=== PATIENT | female | born 1945 | race Caucasian/White ===

== ENCOUNTER 2022-11-13 08:55 | Inpatient (IN) | payer MEDICARE, BC ==
[~2022-11-13] VITALS: Ht 157.5 cm; Wt 66.7 kg
--- NOTE | 2022-11-13 09:04 | NUR ---
PT IS IN ROOM #2A. DR WOOTEN EVALUATED THE PT.
[2022-11-13 09:45] LABS: HEMATOCRIT 39.2 % (31.2-41.9); PLATELET COUNT (AUTO) 187 K/uL (179-408)
[2022-11-13] MEDS ORDERED: CLON0.1T PO (10:14)
[2022-11-13] MEDS ORDERED: CALC-1095 PO (10:14)
[2022-11-13] MEDS ORDERED: SPIR1TAB PO (10:14)
[2022-11-13] MEDS ORDERED: METO25TA3 PO (10:14)
[2022-11-13 10:53] LABS: CARBON DIOXIDE 28 mmol/L (21-32); CHLORIDE 101 mmol/L (98-107); CREATININE 0.8 mg/dL (0.6-1.3); GLUCOSE 140 mg/dL (74-106); POTASSIUM 3.8 mmol/L (3.5-5.1); UREA NITROGEN, BLOOD 16 mg/dL (7-18)
[2022-11-13] MEDS ORDERED: ACETAMINOPHEN 325 MG TABLET PO PRN (11:00)
[2022-11-13] MEDS ORDERED: ONDANSETRON 4 MG/2 ML VIAL IV PRN (11:00)
[2022-11-13] MEDS ORDERED: MORPHINE SULFATE 2 MG/1 ML DISP.SYRIN IV PRN (11:00)
[2022-11-13] MEDS ORDERED: REMEDY ESSENTIAL ZINC PASTE 113 GM TP PRN (11:00)
[2022-11-13] MEDS ORDERED: MAGNESIUM HYDROXIDE 30 ML LIQUID UDC PO PRN (11:00)
[2022-11-13] MEDS ORDERED: IV NS 1000 ML 1,000 ML IV PRN (11:00)
--- NOTE | 2022-11-13 11:17 | NUR ---
REPORT WAS GIVEN TO RN M/S. PT WAS TRANSFERED TO ROOM #317.
--- NOTE | 2022-11-13 11:30 | NUR ---
received from ER awake, alert and oriented, per juan luis with daughter and [employer], oriented to bed controls and call button, initial assessment done, made comfortable and explained plan of care, seen by hospitalist Mary Petty with orders, safety measures maintained, call light within reach
[2022-11-13 12:00] VITALS: BP 142/100
[2022-11-13] MEDS ORDERED: CARV25TA PO (13:01)
--- NOTE | 2022-11-13 13:15 | NUR ---
medicated for pain on left hip with Morphine 1mg as ordered prn, family at bedside
--- NOTE | 2022-11-13 13:45 | NUR ---
states pain lesser 3/10, resting with family at bedside- took lunch, informed of surgery at 0800 tomorrow and will be nothing per mouth at midnite-verbalized understanding
[2022-11-13] MEDS: IV 1/2NS 1000 ML 1,000 ML IV PRN (14:11)
--- NOTE | 2022-11-13 16:00 | NUR ---
resting, daughter and female visitor at bedside, no distress noted, voided per bedpan- quantity sufficient
[2022-11-13 16:18] VITALS: BP 117/55
--- NOTE | 2022-11-13 17:35 | NUR ---
iv site infiltrated, states "been poked several times and reluctant to have iv restarted- explained the need of IV for pain med and iv abx and will be npo after midnite for surgery in am- agreed to have midline inserted-snow removal supervisor notified for midline nurse
[2022-11-13] MEDS: CARVEDILOL 25 MG TABLET PO SCH (17:46)
[2022-11-13 20:00] VITALS: BP 121/64
[2022-11-13] MEDS: MORPHINE SULFATE 2 MG/1 ML DISP.SYRIN IV PRN (20:30)
[2022-11-13] MEDS ORDERED: CLONIDINE HCL 0.1 MG TABLET PO SCH (21:00)
[2022-11-13] MEDS ORDERED: CEFAZOLIN 1 G VIAL IM SCH (22:00)
[2022-11-13] MEDS: CEFAZOLIN 1 G in IV DEXTROSE 5% 50 ML IV SCH (22:03)
[2022-11-14 04:00] VITALS: BP 99/51
[2022-11-14] MEDS: MORPHINE SULFATE 2 MG/1 ML DISP.SYRIN IV PRN (04:22)
[2022-11-14] MEDS: IV 1/2NS 1000 ML 1,000 ML IV PRN (05:18)
[2022-11-14] MEDS: CEFAZOLIN 1 G in IV DEXTROSE 5% 50 ML IV SCH ×2 (05:37→16:28)
[2022-11-14] MEDS ORDERED: VANCOMYCIN 1000 MG VIAL ONE (06:37)
--- NOTE | 2022-11-14 06:58 | NUR ---
Slept intermittently, medicated for pain as ordered. No adverse reaction from IV antibiotic. NPO post midnight for schedule surgery in the morning. Needs assessed and attended to.
[2022-11-14 06:59] LABS: HEMATOCRIT 34.3 % (31.2-41.9); MEAN CORPUSCULAR HEMOGLOBIN 27.2 uug (24.7-32.8); MEAN CORPUSCULAR VOLUME 82.7 fL (75.5-95.3); PLATELET COUNT (AUTO) 172 K/uL (179-408)
[2022-11-14 07:04] LABS: CARBON DIOXIDE 30 mmol/L (21-32); CHLORIDE 102 mmol/L (98-107); CREATININE 0.8 mg/dL (0.6-1.3); GLUCOSE 144 mg/dL (74-106); MAGNESIUM 1.7 mg/dL (1.8-2.4); PHOSPHOROUS 3.8 mg/dL (2.5-4.9); POTASSIUM 4.1 mmol/L (3.5-5.1); UREA NITROGEN, BLOOD 17 mg/dL (7-18)
[2022-11-14] MEDS ORDERED: FENTANYL CITRATE 250 MCG/5 ML AMPUL ONE (07:18)
[2022-11-14] MEDS ORDERED: ROCURONIUM BROMIDE 50 MG/5 ML VIAL ONE (07:18)
[2022-11-14] MEDS ORDERED: MIDAZOLAM HCL 2 MG/2 ML VIAL ONE (07:18)
[2022-11-14] MEDS ORDERED: FAMOTIDINE. 20 MG/2 ML VIAL IV ONE (07:18)
--- NOTE | 2022-11-14 07:53 | NUR ---
Pt. left the unit for surgery.
[2022-11-14 08:15] LABS: *BILIRUBIN,URIN NEGATIVE (NEGATIVE); *CLARITY,URINE CLEAR (CLEAR); *COLOR,URINE YELLOW (YELLOW); *KETONES,URINE NEGATIVE (NEGATIVE); *UROBILINOGEN,URINE 0.2 E.U./dl (NORMAL); LEUKOCYTE ESTERASE ,URINE NEGATIVE (NEGATIVE); NITRITE, URINE NEGATIVE (NEGATIVE); PH,URINE 6.5 (5.0-8.0); UGLUCOSE NEGATIVE (NEGATIVE)
[2022-11-14 08:24] LABS: *BLOOD, URINE TRACE (NEGATIVE)
[2022-11-14 09:00] LABS: RBC,URINE 0-3 /HPF (0-3)
[2022-11-14] MEDS: CALCIUM CARBONATE 500 MG TABLET PO SCH (09:00)
[2022-11-14] MEDS: CARVEDILOL 25 MG TABLET PO SCH ×2 (09:00→16:42)
[2022-11-14] MEDS ORDERED: METOPROLOL SUCCINATE XL 25 MG TAB.SR.24H PO SCH (09:00)
[2022-11-14 09:01] LABS: BACTERIA,URINE NONE SEEN /HPF (NONE SEEN); CALCIUM CARBONATE CRYSTALS,UR NONE SEEN /HPF (NONE SEEN); CALCIUM OXALATE CRYSTALS,UR NONE SEEN /HPF (NONE SEEN); CALCIUM PHOSPHATE CRYSTALS,UR NONE SEEN /HPF (NONE SEEN); COARSE GRANULAR CASTS,URINE NONE SEEN /LPF; CYSTINE CRYSTALS,URINE NONE SEEN /HPF (NONE SEEN); FATTY CASTS,URINE NONE SEEN /LPF (NONE SEEN); MUCUS,URINE FEW /LPF (0-FEW); RED BLOOD CELL CASTS,URINE NONE SEEN /LPF (NONE SEEN); SPERM,URINE NONE SEEN /HPF (NONE SEEN); SQUAMOUS EPITHELIAL CELL,UR FEW /HPF (NONE SEEN); TRICHOMONAS,URINE NONE SEEN /HPF (NONE SEEN); TRIPLE PHOSPHATE CRYSTAL,UR NONE SEEN /HPF (NONE SEEN); TYROSINE CRYSTAL,URINE NONE SEEN /HPF (NONE SEEN); URIC ACID CRYSTALS,URINE NONE SEEN /HPF (NONE SEEN); URINE AMORPHOUS PHOSPHATES NONE SEEN /HPF; URINE AMORPHOUS URATE NONE SEEN /HPF; WAXY CASTS,URINE NONE SEEN /LPF (NONE SEEN); WBC,URINE NONE SEEN /HPF (0-3); YEAST,URINE NONE SEEN /HPF (NONE SEEN)
[2022-11-14] MEDS ORDERED: CEFAZOLIN 1 G VIAL ONE (10:14)
[2022-11-14] MEDS ORDERED: LIDOCAINE-MPF 2% 5 ML VIAL ONE (10:14)
[2022-11-14] MEDS ORDERED: NEOSTIGMINE METHYLSULFATE 10 MG/10 ML VIAL ONE (10:14)
[2022-11-14] MEDS ORDERED: PROPOFOL 200 MG/20 ML BOTTLE ONE (10:14)
[2022-11-14] MEDS ORDERED: GLYCOPYRROLATE 0.2 MG/ML VIAL ONE (10:14)
[2022-11-14] MEDS ORDERED: METOCLOPRAMIDE HCL 10 MG/2 ML VIAL ONE (10:14)
[2022-11-14] MEDS ORDERED: ONDANSETRON 4 MG/2 ML VIAL ONE (10:14)
--- NOTE | 2022-11-14 11:00 | NUR ---
Pt. came back from surgery. Noted to be stable. Notified pt.'s daughter Yulia when pt. came back to the unit. Received report from OR nurse Rupert Arroyo. Incision site is clean and will keep it clean and dry. No c/o pain. Call light within reach. Will keep monitoring the patient.
[2022-11-14] MEDS ORDERED: HYDROCODONE/APAP 10-325 MG TABLET PO PRN (11:45)
[2022-11-14 11:54] VITALS: BP 128/69
[2022-11-14] MEDS: IV D5W-0.45% NS +20 KCL 1,000 ML IV PRN (12:28)
[2022-11-14] MEDS ORDERED: CEFAZOLIN 1 G in IV DEXTROSE 5% 50 ML IV SCH (14:00)
[2022-11-14 15:47] VITALS: BP 134/57
[2022-11-14] MEDS ORDERED: MAGNESIUM OXIDE 400 MG TABLET PO ONE (17:00)
[2022-11-14] MEDS: RIVAROXABAN 10 MG TABLET PO SCH (17:11)
--- NOTE | 2022-11-14 17:42 | NUR ---
Pt. is alert and oriented x4. Has been stable during the shift. Surgical site clean. Able to make the need known. Kept the patient clean and dry. All schedule medications administered and no adverse reaction noted. Will keep monitoring the patient.
[2022-11-14] MEDS: MORPHINE SULFATE 4 MG/1 ML DISP.SYRIN IV PRN (17:46)
[2022-11-14 20:05] VITALS: BP 165/68
[2022-11-14] MEDS ORDERED: CLONIDINE HCL 0.1 MG TABLET PO PRN (21:00)
[2022-11-15] MEDS: CEFAZOLIN 1 G in IV DEXTROSE 5% 50 ML IV SCH (00:32)
[2022-11-15] MEDS: IV D5W-0.45% NS +20 KCL 1,000 ML IV PRN ×2 (02:26→15:57)
[2022-11-15 06:00] VITALS: BP 153/62
[2022-11-15 06:19] LABS: HEMATOCRIT 29.6 % (31.2-41.9); MEAN CORPUSCULAR HEMOGLOBIN 27.3 uug (24.7-32.8); MEAN CORPUSCULAR VOLUME 82.9 fL (75.5-95.3); PLATELET COUNT (AUTO) 164 K/uL (179-408)
[2022-11-15 06:58] LABS: CARBON DIOXIDE 28 mmol/L (21-32); CHLORIDE 101 mmol/L (98-107); CREATININE 0.8 mg/dL (0.6-1.3); GLUCOSE 140 mg/dL (74-106); MAGNESIUM 1.7 mg/dL (1.8-2.4); UREA NITROGEN, BLOOD 12 mg/dL (7-18)
--- NOTE | 2022-11-15 07:01 | NUR ---
Slept well, no complain of pain. Surgical site dressing dry and intact, no noted bleeding. No adverse reaction from IV antibiotic. Needs attended.
[2022-11-15] MEDS: CARVEDILOL 25 MG TABLET PO SCH ×2 (09:03→17:22)
[2022-11-15] MEDS: CALCIUM CARBONATE 500 MG TABLET PO SCH (09:04)
[2022-11-15] MEDS ORDERED: MAGNESIUM OXIDE 400 MG TABLET PO ONE (10:00)
[2022-11-15] MEDS: MORPHINE SULFATE 4 MG/1 ML DISP.SYRIN IV PRN (10:57)
[2022-11-15] MEDS: HYDROCHLOROTHIAZIDE 12.5 MG CAPSULE PO SCH (11:51)
[2022-11-15] MEDS: SPIRONOLACTONE 25 MG TABLET PO SCH (11:51)
[2022-11-15 12:00] VITALS: BP 146/52
[2022-11-15 15:41] VITALS: BP 124/50
--- NOTE | 2022-11-15 16:51 | NUR ---
Pt. has been stable during the shift. Surgical site kept clean and dry. Call light within reach. Compliance with the care given. All need attended and met. Medications given as ordered and no adverse reaction noted. Will keep monitoring the patient.
[2022-11-15] MEDS: RIVAROXABAN 10 MG TABLET PO SCH (17:15)
[2022-11-15 20:36] VITALS: BP 130/39
--- NOTE | 2022-11-16 03:34 | NUR ---
RECEIVED REPORT FROM AM NURSE JOHAN PT IS ALERT AND ORIENTED X4 PT LEFT HIP DRESSING DRY AND INTACT NO SIGNS OF DRAINAGE. PT DENIES PAIN AT START OF SHIFT BUT AFTERWARDS PATIENT GIVEN NORCO 10/325MG LATER DURING SHIFT. PT REASSESSED WITH IN AND HOUR PT SLEEPING. PT GIVEN MEDICATION ORDERED NO SIGNS OF DIABETIC REACTION NOTED. WILL ENDORSE TO NEXT SHIFT NURSE.
[2022-11-16 04:15] VITALS: BP 118/52
[2022-11-16] MEDS: IV D5W-0.45% NS +20 KCL 1,000 ML IV PRN (05:33)
[2022-11-16 07:17] LABS: HEMATOCRIT 29.3 % (31.2-41.9); MEAN CORPUSCULAR HEMOGLOBIN 27.5 uug (24.7-32.8); MEAN CORPUSCULAR VOLUME 83.2 fL (75.5-95.3); PLATELET COUNT (AUTO) 167 K/uL (179-408)
[2022-11-16 07:35] LABS: CARBON DIOXIDE 30 mmol/L (21-32); CHLORIDE 102 mmol/L (98-107); CREATININE 0.8 mg/dL (0.6-1.3); GLUCOSE 129 mg/dL (74-106); MAGNESIUM 1.7 mg/dL (1.8-2.4); POTASSIUM 4.1 mmol/L (3.5-5.1); UREA NITROGEN, BLOOD 13 mg/dL (7-18)
[2022-11-16] MEDS: SPIRONOLACTONE 25 MG TABLET PO SCH (08:51)
[2022-11-16] MEDS: HYDROCHLOROTHIAZIDE 12.5 MG CAPSULE PO SCH (08:52)
[2022-11-16] MEDS ORDERED: CALCIUM CARBONATE 500 MG TABLET PO SCH (08:56)
[2022-11-16] MEDS ORDERED: RIVA10TA PO (08:59)
[2022-11-16] MEDS ORDERED: MAGN400O6 PO (08:59)
[2022-11-16] MEDS ORDERED: HYDR-3980 PO (08:59)
[2022-11-16] MEDS ORDERED: SPIR25TA PO (08:59)
[2022-11-16] MEDS ORDERED: CLON0.1T PO (08:59)
[2022-11-16] MEDS: CARVEDILOL 25 MG TABLET PO SCH (09:01)
[2022-11-16] MEDS: MAGNESIUM SULFATE/D5W 100 ML IV SCH ×2 (09:07→10:33)
[2022-11-16] MEDS: MORPHINE SULFATE 4 MG/1 ML DISP.SYRIN IV PRN (09:20)
[2022-11-16 11:49] VITALS: BP 131/57
--- NOTE | 2022-11-16 13:05 | NUR ---
Pt. discharged to rehab and rehab nurse received report for admission. Pt. noted to be stable upon the discharge. All necessary document signed and a copy given to the patient.
== END 2022-11-16 13:24 | DRG 482 ==
LOC: ER 08:55 → MEDSURG3 11:14
PROVIDERS: ADMIT Nurse Practitioner Acute Care; ATTEND Nurse Practitioner Acute Care
PROC: 0QS736Z Reposition Left Upper Femur with Intramedullary Internal Fixation Device, Percutaneous Approach (ICD-10-PCS; principal; 2022-11-14)
DX: S72.102A Unspecified trochanteric fracture of left femur, initial encounter for closed fracture (principal); W01.0XXA Fall on same level from slipping, tripping and stumbling without subsequent striking against object, initial encounter; Y92.013 Bedroom of single-family (private) house as the place of occurrence of the external cause; Z90.13 Acquired absence of bilateral breasts and nipples; I10 Essential (primary) hypertension; R73.9 Hyperglycemia, unspecified; Z20.822 Contact with and (suspected) exposure to COVID-19; Z79.899 Other long term (current) drug therapy; Z98.42 Cataract extraction status, left eye; Z98.41 Cataract extraction status, right eye; R00.1 Bradycardia, unspecified
CPT/HCPCS: 36415; 71045; 73502; 73503; 83735; 84100; 85025; 85730; 93005; 93307; A4649; A4663; A6209; C1713; G0378; J0690; J2250; J2270; J2405; J2765; J3010; J3370; J3475; J3490; J7040

== ENCOUNTER 2022-11-16 13:31 | Inpatient (IN) | payer MEDICARE, BC ==
[~2022-11-16] VITALS: Ht 157.5 cm; Wt 66.7 kg
[~2022-11-16 13:31] MED LIST: CALC-1095 PO; CARV25TA PO; CLON0.1T PO; HYDR-3980 PO; MAGN400O6 PO; RIVA10TA PO; SPIR1TAB PO; SPIR25TA PO
[2022-11-16] MEDS ORDERED: REMEDY ESSENTIAL ZINC PASTE 113 GM TOP PRN (13:45)
[2022-11-16 16:03] VITALS: BP 134/51
[2022-11-16 20:22] VITALS: BP 123/63
[2022-11-16] MEDS: HYDROCODONE/APAP 10-325 MG TABLET PO PRN (21:30)
[2022-11-17 04:20] VITALS: BP 128/61
[2022-11-17] MEDS ORDERED: CLONIDINE HCL 0.1 MG TABLET PO PRN (07:45)
[2022-11-17] MEDS ORDERED: HYDROCODONE/APAP 10-325 MG TABLET PO PRN (07:45)
[2022-11-17] MEDS ORDERED: MAGNESIUM HYDROXIDE 30 ML LIQUID UDC PO PRN ×2 (07:45→12:30)
[2022-11-17 08:00] VITALS: BP 137/57
[2022-11-17] MEDS: CARVEDILOL 25 MG TABLET PO SCH ×2 (08:52→17:32)
[2022-11-17] MEDS: HYDROCODONE/APAP 10-325 MG TABLET PO PRN (08:56)
[2022-11-17] MEDS ORDERED: SPIRONOLACTONE 25 MG TABLET PO SCH (09:00)
[2022-11-17] MEDS: DOCUSATE SODIUM 100 MG CAPSULE PO SCH ×3 (10:59→17:28)
[2022-11-17 15:52] VITALS: BP 121/61
[2022-11-17 16:00] LABS: CARBON DIOXIDE 30 mmol/L (21-32); CHLORIDE 97 mmol/L (98-107); CREATININE 0.9 mg/dL (0.6-1.3); GLUCOSE 166 mg/dL (74-106); MAGNESIUM 1.9 mg/dL (1.8-2.4); POTASSIUM 4.2 mmol/L (3.5-5.1); UREA NITROGEN, BLOOD 23 mg/dL (7-18)
[2022-11-17] MEDS: RIVAROXABAN 10 MG TABLET PO SCH (17:29)
[2022-11-17 20:29] VITALS: BP 130/55
[2022-11-17] MEDS ORDERED: CLONIDINE HCL 0.1 MG TABLET PO SCH (21:00)
[2022-11-18 05:09] VITALS: BP 136/43
[2022-11-18] MEDS: HYDROCODONE/APAP 10-325 MG TABLET PO PRN ×2 (06:46→08:21)
[2022-11-18 07:34] VITALS: BP 139/60
[2022-11-18] MEDS: CARVEDILOL 25 MG TABLET PO SCH ×2 (08:20→17:39)
[2022-11-18] MEDS: DOCUSATE SODIUM 100 MG CAPSULE PO SCH ×2 (08:23→17:00)
[2022-11-18] MEDS ORDERED: ACETAMINOPHEN ES 500 MG TABLET PO PRN (13:00)
[2022-11-18 16:00] VITALS: BP 130/59
[2022-11-18] MEDS: RIVAROXABAN 10 MG TABLET PO SCH (17:39)
[2022-11-18] MEDS: ACETAMINOPHEN 325 MG TABLET PO PRN (17:41)
[2022-11-18 20:01] VITALS: BP 132/54
[2022-11-18] MEDS: OXYCODONE HCL 5 MG TABLET PO PRN (20:48)
[2022-11-19 04:35] VITALS: BP 133/56
[2022-11-19 07:43] VITALS: BP 130/63
[2022-11-19] MEDS: DOCUSATE SODIUM 100 MG CAPSULE PO SCH ×2 (08:22→18:35)
[2022-11-19] MEDS: CARVEDILOL 25 MG TABLET PO SCH ×2 (08:23→18:36)
[2022-11-19] MEDS: OXYCODONE HCL 5 MG TABLET PO PRN (08:27)
[2022-11-19 16:00] VITALS: BP_SYST 105; BP_SYST 116; BP_DIAS 35; BP_DIAS 56
[2022-11-19] MEDS ORDERED: OXYCODONE/APAP 5-325 MG TABLET PO PRN (18:30)
[2022-11-19] MEDS: GLUCERNA SHAKE 237 ML CAN PO SCH (18:35)
[2022-11-19] MEDS: RIVAROXABAN 10 MG TABLET PO SCH (18:37)
[2022-11-19 19:50] VITALS: BP 135/59
[2022-11-20 05:44] VITALS: BP 159/74
[2022-11-20] MEDS: GLUCERNA SHAKE 237 ML CAN PO SCH ×2 (08:26→17:15)
[2022-11-20] MEDS: CARVEDILOL 25 MG TABLET PO SCH ×2 (08:26→17:12)
[2022-11-20] MEDS: DOCUSATE SODIUM 100 MG CAPSULE PO SCH ×2 (08:26→17:00)
[2022-11-20 08:58] VITALS: BP 139/45
[2022-11-20] MEDS: ACETAMINOPHEN 325 MG TABLET PO PRN (09:19)
[2022-11-20 16:00] VITALS: BP 127/72
[2022-11-20] MEDS: RIVAROXABAN 10 MG TABLET PO SCH (17:13)
[2022-11-20 20:00] VITALS: BP 128/64
[2022-11-21] MEDS: GABAPENTIN 300 MG CAPSULE PO ONE (00:30)
[2022-11-21 04:42] VITALS: BP 149/75
[2022-11-21 08:07] VITALS: BP 140/60
[2022-11-21] MEDS: CARVEDILOL 25 MG TABLET PO SCH ×2 (08:38→17:30)
[2022-11-21] MEDS: GLUCERNA SHAKE 237 ML CAN PO SCH ×2 (08:42→17:22)
[2022-11-21] MEDS: DOCUSATE SODIUM 100 MG CAPSULE PO SCH ×2 (08:42→16:50)
[2022-11-21] MEDS: ACETAMINOPHEN 325 MG TABLET PO PRN (13:12)
[2022-11-21 15:51] VITALS: BP 133/55
[2022-11-21] MEDS: RIVAROXABAN 10 MG TABLET PO SCH (17:30)
[2022-11-21 20:00] VITALS: BP 131/52
[2022-11-22] MEDS: GABAPENTIN 300 MG CAPSULE PO ONE (00:06)
[2022-11-22 04:00] VITALS: BP 135/63
[2022-11-22] MEDS ORDERED: GABAPENTIN 300 MG CAPSULE PO ONE ×2 (06:15→22:30)
[2022-11-22 08:08] VITALS: BP 156/76
[2022-11-22] MEDS: CARVEDILOL 25 MG TABLET PO SCH ×2 (08:51→17:43)
[2022-11-22] MEDS: DOCUSATE SODIUM 100 MG CAPSULE PO SCH ×2 (08:52→16:50)
[2022-11-22] MEDS: GLUCERNA SHAKE 237 ML CAN PO SCH ×2 (08:52→16:50)
[2022-11-22 12:02] LABS: MEAN CORPUSCULAR HEMOGLOBIN 27.8 uug (24.7-32.8); MEAN CORPUSCULAR VOLUME 84.3 fL (75.5-95.3); PLATELET COUNT (AUTO) 327 K/uL (179-408)
[2022-11-22 12:47] LABS: ALANINE AMINOTRANSFERASE 30 U/L (14-59); ALKALINE PHOSPHATASE 87 U/L (50-136); ASPARTATE AMINOTRANSFERASE 26 U/L (15-37); BILIRUBIN,TOTAL 0.8 mg/dL (0.2-1.0); CARBON DIOXIDE 29 mmol/L (21-32); CHLORIDE 100 mmol/L (98-107); CHOLESTEROL 160 mg/dL (<200); CREATININE 0.7 mg/dL (0.6-1.3); GLUCOSE 132 mg/dL (74-106); HDL CHOLESTEROL 36 mg/dL (40-60); MAGNESIUM 1.7 mg/dL (1.8-2.4); PHOSPHOROUS 3.7 mg/dL (2.5-4.9); POTASSIUM 3.7 mmol/L (3.5-5.1); TOTAL PROTEIN, SERUM 6.3 g/dL (6.4-8.2); TRIGLYCERIDES 133 MG/DL (30-150); UREA NITROGEN, BLOOD 18 mg/dL (7-18)
[2022-11-22 14:41] LABS: IRON, SERUM 71 ug/dL (50-175)
[2022-11-22] MEDS: CALCIUM CARB/VITAMIN D 500MG-200UNITS TABLET PO SCH (15:23)
[2022-11-22 15:54] VITALS: BP 139/64
[2022-11-22] MEDS: RIVAROXABAN 10 MG TABLET PO SCH (17:44)
[2022-11-22 20:40] VITALS: BP 156/79
[2022-11-22] MEDS ORDERED: ropiniROLE 0.25 MG TABLET PO ONE (22:00)
[2022-11-23 04:10] VITALS: BP 138/60
[2022-11-23] MEDS: DOCUSATE SODIUM 100 MG CAPSULE PO SCH ×2 (08:26→16:56)
[2022-11-23] MEDS: CALCIUM CARB/VITAMIN D 500MG-200UNITS TABLET PO SCH (08:27)
[2022-11-23] MEDS: GLUCERNA SHAKE 237 ML CAN PO SCH (08:27)
[2022-11-23] MEDS: CARVEDILOL 25 MG TABLET PO SCH ×2 (08:35→18:00)
[2022-11-23 08:38] VITALS: BP 120/66
[2022-11-23 16:00] VITALS: BP 125/65
[2022-11-23] MEDS: RIVAROXABAN 10 MG TABLET PO SCH (18:00)
[2022-11-23] MEDS: GABAPENTIN 300 MG CAPSULE PO SCH (20:14)
[2022-11-23 20:35] VITALS: BP 138/71
[2022-11-24 04:05] VITALS: BP 154/78
[2022-11-24 08:00] VITALS: BP 135/84
[2022-11-24] MEDS: CALCIUM CARB/VITAMIN D 500MG-200UNITS TABLET PO SCH (08:45)
[2022-11-24] MEDS: DOCUSATE SODIUM 100 MG CAPSULE PO SCH ×3 (08:45→16:57)
[2022-11-24] MEDS: GLUCERNA SHAKE 237 ML CAN PO SCH (08:46)
[2022-11-24] MEDS: CARVEDILOL 25 MG TABLET PO SCH ×2 (08:49→17:48)
[2022-11-24 15:39] VITALS: BP 139/81
[2022-11-24] MEDS: RIVAROXABAN 10 MG TABLET PO SCH (17:49)
[2022-11-24 20:00] VITALS: BP 148/67
[2022-11-24] MEDS: GABAPENTIN 300 MG CAPSULE PO SCH (21:30)
[2022-11-25 04:00] VITALS: BP 148/69
[2022-11-25] MEDS: CALCIUM CARB/VITAMIN D 500MG-200UNITS TABLET PO SCH (08:20)
[2022-11-25] MEDS: DOCUSATE SODIUM 100 MG CAPSULE PO SCH ×2 (08:20→17:00)
[2022-11-25 08:21] VITALS: BP 129/68
[2022-11-25] MEDS: CARVEDILOL 25 MG TABLET PO SCH ×2 (08:21→17:12)
[2022-11-25] MEDS: GLUCERNA SHAKE 237 ML CAN PO SCH (08:21)
[2022-11-25] MEDS: ACETAMINOPHEN 325 MG TABLET PO PRN (09:52)
[2022-11-25 15:30] VITALS: BP 131/67
[2022-11-25] MEDS: RIVAROXABAN 10 MG TABLET PO SCH (17:10)
[2022-11-25 20:11] VITALS: BP 118/58
[2022-11-25] MEDS: GABAPENTIN 300 MG CAPSULE PO SCH (21:43)
[2022-11-26 04:00] VITALS: BP 137/68
[2022-11-26 07:35] VITALS: BP 144/65
[2022-11-26] MEDS: CALCIUM CARB/VITAMIN D 500MG-200UNITS TABLET PO SCH (08:06)
[2022-11-26] MEDS: DOCUSATE SODIUM 100 MG CAPSULE PO SCH ×2 (08:06→17:00)
[2022-11-26] MEDS: ACETAMINOPHEN 325 MG TABLET PO PRN ×2 (08:09→21:29)
[2022-11-26] MEDS: CARVEDILOL 25 MG TABLET PO SCH ×2 (08:09→17:21)
[2022-11-26] MEDS: GLUCERNA SHAKE 237 ML CAN PO SCH (08:09)
[2022-11-26 16:03] VITALS: BP 138/57
[2022-11-26] MEDS: RIVAROXABAN 10 MG TABLET PO SCH (17:19)
[2022-11-26] MEDS: GABAPENTIN 300 MG CAPSULE PO SCH ×2 (21:00→21:08)
[2022-11-26 23:39] VITALS: BP 142/63
[2022-11-27 05:08] VITALS: BP 140/58
[2022-11-27 07:34] VITALS: BP 147/70
[2022-11-27] MEDS: DOCUSATE SODIUM 100 MG CAPSULE PO SCH ×2 (09:00→17:00)
[2022-11-27] MEDS: CARVEDILOL 25 MG TABLET PO SCH ×2 (09:24→17:42)
[2022-11-27] MEDS: CALCIUM CARB/VITAMIN D 500MG-200UNITS TABLET PO SCH (09:24)
[2022-11-27] MEDS: GLUCERNA SHAKE 237 ML CAN PO SCH (09:25)
[2022-11-27] MEDS: ACETAMINOPHEN 325 MG TABLET PO PRN (09:26)
[2022-11-27 16:52] VITALS: BP 137/50
[2022-11-27] MEDS: RIVAROXABAN 10 MG TABLET PO SCH (17:43)
[2022-11-27 20:34] VITALS: BP 134/61
[2022-11-27] MEDS: GABAPENTIN 300 MG CAPSULE PO SCH (20:42)
[2022-11-28 05:00] VITALS: BP 145/73
[2022-11-28] MEDS: DOCUSATE SODIUM 100 MG CAPSULE PO SCH ×2 (09:46→17:00)
[2022-11-28] MEDS: CARVEDILOL 25 MG TABLET PO SCH ×2 (09:46→17:58)
[2022-11-28] MEDS: CALCIUM CARB/VITAMIN D 500MG-200UNITS TABLET PO SCH (09:46)
[2022-11-28 09:56] VITALS: BP 144/67
[2022-11-28 15:53] VITALS: BP 138/56
[2022-11-28] MEDS: RIVAROXABAN 10 MG TABLET PO SCH (17:59)
[2022-11-28 20:00] VITALS: BP 140/66
[2022-11-28 20:08] VITALS: BP 140/66
[2022-11-28] MEDS: GABAPENTIN 300 MG CAPSULE PO SCH (20:41)
[2022-11-29 04:00] VITALS: BP 148/68
[2022-11-29 04:30] VITALS: BP 148/68
[2022-11-29 07:58] VITALS: BP 138/65
[2022-11-29] MEDS: CALCIUM CARB/VITAMIN D 500MG-200UNITS TABLET PO SCH (08:50)
[2022-11-29] MEDS: CARVEDILOL 25 MG TABLET PO SCH ×2 (08:51→17:46)
[2022-11-29] MEDS: DOCUSATE SODIUM 100 MG CAPSULE PO SCH ×2 (08:53→17:00)
[2022-11-29 16:29] VITALS: BP 138/64
[2022-11-29] MEDS: RIVAROXABAN 10 MG TABLET PO SCH (17:46)
[2022-11-29 20:09] VITALS: BP 121/67
[2022-11-29] MEDS: GABAPENTIN 300 MG CAPSULE PO SCH (20:29)
[2022-11-30 04:21] VITALS: BP 160/73
[2022-11-30 07:35] VITALS: BP 122/63
[2022-11-30] MEDS: DOCUSATE SODIUM 100 MG CAPSULE PO SCH (09:00)
[2022-11-30] MEDS: CALCIUM CARB/VITAMIN D 500MG-200UNITS TABLET PO SCH (09:00)
[2022-11-30 09:59] VITALS: BP 122/63
[2022-11-30] MEDS: CARVEDILOL 25 MG TABLET PO SCH (09:59)
== END 2022-11-30 11:55 | disposition home or self-care (01) | DRG 560 ==
PROVIDERS: ADMIT Physical Medicine & Rehabilitation Pain Medicine; ATTEND Nurse Practitioner Acute Care
DX: S72.142D Displaced intertrochanteric fracture of left femur, subsequent encounter for closed fracture with routine healing (principal); D68.59 Other primary thrombophilia; E87.1 Hypo-osmolality and hyponatremia; W18.30XD Fall on same level, unspecified, subsequent encounter; I10 Essential (primary) hypertension; D64.9 Anemia, unspecified; E86.0 Dehydration; R73.03 Prediabetes
CPT/HCPCS: 36415; 73501; 83550; 83735; 84100; 84443; 85025; 97535-GO-CO; A6209; J8499